=== PATIENT | male | born 1995 | race Caucasian/White ===

== ENCOUNTER 2017-01-07 00:46 | Emergency (ER) | payer MEDICAID ==
[2017-01-07 01:45] VITALS: BP 142/105
== END 2017-01-07 01:45 | disposition left against medical advice (07) ==
LOC: ED 00:46
DX: Z53.21 Procedure and treatment not carried out due to patient leaving prior to being seen by health care provider (principal)

== ENCOUNTER 2017-01-28 09:22 | Emergency (ER) | payer MEDICAID ==
[2017-01-28 09:30] VITALS: BP 137/107
== END 2017-01-28 09:51 | disposition left against medical advice (07) ==
LOC: ED 09:22
DX: Z53.21 Procedure and treatment not carried out due to patient leaving prior to being seen by health care provider (principal)

== ENCOUNTER 2017-01-29 21:52 | Emergency (ER) | payer MEDICAID ==
[2017-01-30 00:43] VITALS: BP 142/87
== END 2017-01-30 00:43 | disposition home or self-care (01) ==
LOC: ED 21:52
DX: T52.0X1A Toxic effect of petroleum products, accidental (unintentional), initial encounter (principal); H10.212 Acute toxic conjunctivitis, left eye; Y92.89 Other specified places as the place of occurrence of the external cause
CPT/HCPCS: J7030; J7050; V2632

== ENCOUNTER 2017-03-20 00:13 | Emergency (ER) | payer OTHER | END 2017-03-20 01:42 | disposition other institution (70) | LOC: ED 00:13 | DX: Z02.89 Encounter for other administrative examinations (principal) ==

== ENCOUNTER 2017-03-20 00:13 | Emergency (ER) | payer MEDICAID ==
[2017-03-20 01:41] VITALS: BP 148/111
== END 2017-03-20 01:42 | disposition other institution (70) ==
LOC: ED 00:13
DX: S02.2XXA Fracture of nasal bones, initial encounter for closed fracture (principal); X58.XXXA Exposure to other specified factors, initial encounter; Y93.89 Activity, other specified; Y99.8 Other external cause status; Y92.89 Other specified places as the place of occurrence of the external cause

== ENCOUNTER 2017-04-25 22:22 | Emergency (ER) | payer SELFPAY ==
[2017-04-26 00:39] LABS: CALCIUM 8.6 mg/dL (8.5-10.1); CARBON DIOXIDE 27.3 mmol/L (21-32); CHLORIDE SERUM 110 mmol/L (98-107); CREATININE SERUM 1.3 mg/dL (0.7-1.3); GFR1 > 60 mL/min; GLUCOSE SERUM 117 mg/dL (74-106); POTASSIUM SERUM 3.7 mmol/L (3.5-5.1); SODIUM SERUM 146 mmol/L (136-145)
[2017-04-26 00:51] LABS: ALKALINE PHOSPHATASE 75 U/L (46-116); ALT/SGPT 23 U/L (16-63); AST/SGOT 17 U/L (15-37); BASOPHIL % 0.9 % (0-2); BILIRUBIN TOTAL 0.3 mg/dL (0.20-1.00); PLATELET COUNT 305 x10^3mcL (130-400); RED CELL DISTRIBUTION WIDTH 11.5 % (11.5-14.5); T4(THYROXINE) 7.2 ug/dL (4.7-13.3); TOTAL PROTEIN, SERUM 7.5 g/dL (6.4-8.2)
[2017-04-26 01:21] VITALS: BP 112/75
== END 2017-04-26 01:21 | disposition home or self-care (01) ==
LOC: ED 22:22
PROVIDERS: Emergency Medicine
DX: Z02.89 Encounter for other administrative examinations (principal); R00.0 Tachycardia, unspecified
CPT/HCPCS: 83880; G0480; J2060; J7030; Q0092

== ENCOUNTER 2017-05-05 16:48 | Emergency (ER) | payer MEDICAID ==
[~2017-05-05] VITALS: Ht 172.7 cm; Wt 81.6 kg
[2017-05-05 17:32] LABS: BASOPHIL % 0.4 % (0-2); PLATELET COUNT 330 x10^3mcL (130-400); RED CELL DISTRIBUTION WIDTH 12.4 % (11.5-14.5)
[2017-05-05 17:34] LABS: CALCIUM 9.7 mg/dL (8.5-10.1); CARBON DIOXIDE 28.3 mmol/L (21-32); CHLORIDE SERUM 105 mmol/L (98-107); CREATININE SERUM 1.4 mg/dL (0.7-1.3); GFR1 > 60 mL/min; GLUCOSE SERUM 128 mg/dL (74-106); POTASSIUM SERUM 3.2 mmol/L (3.5-5.1); SODIUM SERUM 146 mmol/L (136-145)
[2017-05-05 17:38] LABS: ALBUMIN 4.6 g/dL (3.4-5.0); ALKALINE PHOSPHATASE 82 U/L (46-116); ALT/SGPT 22 U/L (16-63); AST/SGOT 18 U/L (15-37); BILIRUBIN TOTAL 0.5 mg/dL (0.20-1.00)
[2017-05-05 17:39] LABS: TOTAL PROTEIN, SERUM 8.4 g/dL (6.4-8.2)
[2017-05-05 18:20] LABS: UA SPECIFIC GRAVITY >=1.030 (1.005-1.035); microscopic required? YES; urine erythrocyte NEGATIVE (NEGATIVE)
[2017-05-05 18:37] LABS: AMPHETAMINE QUAL UR POSITIVE (NEG <=1000)
[2017-05-05 23:43] VITALS: BP 105/59
== END 2017-05-05 23:43 | disposition home or self-care (01) ==
LOC: ED 16:48
PROVIDERS: Emergency Medicine
DX: T43.621A Poisoning by amphetamines, accidental (unintentional), initial encounter (principal); G92 Toxic encephalopathy; E87.6 Hypokalemia; E86.0 Dehydration; Y92.89 Other specified places as the place of occurrence of the external cause
CPT/HCPCS: G0480; J0515; J1630; J2060; J2250; J3480; J7030

== ENCOUNTER 2017-06-16 13:52 | Emergency (ER) | payer MEDICAID ==
[2017-06-16 14:02] VITALS: BP 167/121
== END 2017-06-16 15:04 | disposition home or self-care (01) ==
LOC: ED 13:52
DX: T18.0XXA Foreign body in mouth, initial encounter (principal); X58.XXXA Exposure to other specified factors, initial encounter; Y93.89 Activity, other specified; Y99.8 Other external cause status; Y92.89 Other specified places as the place of occurrence of the external cause
CPT/HCPCS: J2060

== ENCOUNTER 2017-06-16 19:13 | Emergency (ER) | payer MEDICAID ==
[2017-06-16 20:52] VITALS: BP 124/81
== END 2017-06-16 20:52 | disposition home or self-care (01) ==
LOC: ED 19:13
DX: F45.8 Other somatoform disorders (principal)
CPT/HCPCS: J1885

== ENCOUNTER 2017-07-07 14:40 | Emergency (ER) | payer SELFPAY ==
[~2017-07-07] VITALS: Ht 175.3 cm; Wt 95.2 kg
[2017-07-07 15:51] LABS: BASOPHIL % 0.2 % (0-2); PLATELET COUNT 310 x10^3mcL (130-400); RED CELL DISTRIBUTION WIDTH 12.1 % (11.5-14.5)
[2017-07-07 16:03] LABS: ALBUMIN 3.6 g/dL (3.4-5.0); ALKALINE PHOSPHATASE 62 U/L (46-116); ALT/SGPT 24 U/L (16-63); AST/SGOT 15 U/L (15-37); BILIRUBIN TOTAL 0.41 mg/dL (0.20-1.00); CALCIUM 8.7 mg/dL (8.5-10.1); CARBON DIOXIDE 27.6 mmol/L (21-32); CHLORIDE SERUM 107 mmol/L (98-107); CREATININE SERUM 1.1 mg/dL (0.7-1.3); GFR1 > 60 mL/min; GLUCOSE SERUM 104 mg/dL (74-106); SODIUM SERUM 142 mmol/L (136-145); TOTAL PROTEIN, SERUM 7.1 g/dL (6.4-8.2)
[2017-07-07 17:44] LABS: UA SPECIFIC GRAVITY >=1.030 (1.005-1.035); microscopic required? YES; urine erythrocyte NEGATIVE (NEGATIVE)
[2017-07-07 17:54] LABS: AMPHETAMINE QUAL UR POSITIVE (NEG <=1000)
[2017-07-07 21:01] VITALS: BP 117/51
== END 2017-07-07 20:30 | disposition home or self-care (01) ==
LOC: ED 14:40
PROVIDERS: Emergency Medicine
DX: F15.921 Other stimulant use, unspecified with intoxication delirium (principal); G92 Toxic encephalopathy
CPT/HCPCS: G0480; J0515; J1630; J2060; J7030; Q0092

== ENCOUNTER 2017-12-08 21:02 | Emergency (ER) | payer SELFPAY ==
[~2017-12-08] VITALS: Ht 175.3 cm; Wt 96.6 kg
[2017-12-08 21:45] VITALS: BP 148/76; Ht 175.3 cm; Wt 96.6 kg
== END 2017-12-09 01:47 | disposition left against medical advice (07) ==
LOC: ED 21:02
DX: Z53.21 Procedure and treatment not carried out due to patient leaving prior to being seen by health care provider (principal)

== ENCOUNTER 2017-12-31 20:15 | Inpatient (IN) | payer SELFPAY ==
[~2017-12-31] VITALS: Ht 175.3 cm; Wt 96.2 kg
[2017-12-31 20:58] LABS: BASOPHIL % 0.4 % (0-2); PLATELET COUNT 326 x10^3mcL (130-400); RED CELL DISTRIBUTION WIDTH 13.3 % (11.5-14.5)
[2017-12-31 21:10] LABS: UA SPECIFIC GRAVITY 1.025 (1.005-1.035); microscopic required? YES; urine erythrocyte TRACE (NEGATIVE)
[2017-12-31 21:18] LABS: AMPHETAMINE QUAL UR POSITIVE (NEG <=1000)
[2017-12-31 21:19] LABS: CALCIUM 9.6 mg/dL (8.5-10.1); CARBON DIOXIDE 26.4 mmol/L (21-32); CHLORIDE SERUM 101 mmol/L (98-107); CREATININE SERUM 1.2 mg/dL (0.7-1.3); GFR1 > 60 mL/min; GLUCOSE SERUM 129 mg/dL (74-106); POTASSIUM SERUM 3.2 mmol/L (3.5-5.1); SODIUM SERUM 135 mmol/L (136-145)
[2017-12-31 21:23] LABS: ALBUMIN 4.7 g/dL (3.4-5.0); ALKALINE PHOSPHATASE 64 U/L (46-116); ALT/SGPT 25 U/L (16-63); AST/SGOT 19 U/L (15-37); BILIRUBIN TOTAL 0.67 mg/dL (0.20-1.00); TOTAL PROTEIN, SERUM 8.1 g/dL (6.4-8.2)
[2018-01-01 13:01] LABS: PHOSPHOROUS 4.5 mg/dL (2.5-4.9)
[2018-01-01 13:03] LABS: CHOLESTEROL/HDL RATIO 2.2
[2018-01-01 13:09] LABS: FREE T4 1.33 ng/dL (0.76-1.46); FREE THYROXINE INDEX 3.2 ug/dL (1.4-4.5); T3 TOTAL 1.24 ng/mL; T4(THYROXINE) 9.1 ug/dL (4.7-13.3)
[2018-01-01 13:12] VITALS: BP 118/63
[2018-01-01] MEDS ORDERED: DILANTIN100 MG PO (13:28)
[2018-01-01] MEDS ORDERED: LEVOTHYROXIN0.025 M2 PO (13:28)
[2018-01-01 18:25] VITALS: BP 100/58
[2018-01-02 01:07] VITALS: BP 110/64
[2018-01-02 07:22] VITALS: BP 102/52
[2018-01-02 10:18] VITALS: BP 97/48
[2018-01-02 14:31] LABS: BASOPHIL % 0.2 % (0-2); PLATELET COUNT 271 x10^3mcL (130-400)
[2018-01-02 14:38] VITALS: BP 110/53
[2018-01-02 14:44] LABS: CALCIUM 8.5 mg/dL (8.5-10.1); CARBON DIOXIDE 30.2 mmol/L (21-32); CHLORIDE SERUM 105 mmol/L (98-107); GFR1 > 60 mL/min; GLUCOSE SERUM 142 mg/dL (74-106); POTASSIUM SERUM 3.7 mmol/L (3.5-5.1); SODIUM SERUM 136 mmol/L (136-145)
[2018-01-02 18:56] VITALS: BP 111/54
[2018-01-02 22:30] VITALS: BP 121/65
[2018-01-03 06:18] VITALS: BP 111/57
[2018-01-03 09:46] VITALS: BP 120/72
[2018-01-03 14:23] VITALS: Ht 175.3 cm; Wt 96.2 kg
[2018-01-03 17:23] VITALS: BP 110/50
[2018-01-03 22:17] VITALS: BP 118/62
[2018-01-04 05:07] VITALS: BP 105/49
[2018-01-04 09:58] VITALS: BP 114/72
[2018-01-04 17:54] VITALS: BP 127/67
[2018-01-04 20:30] VITALS: BP 135/71
[2018-01-05 05:49] VITALS: BP 101/58
[2018-01-05 06:18] LABS: BASOPHIL % 0.4 % (0-2); PLATELET COUNT 280 x10^3mcL (130-400); RED CELL DISTRIBUTION WIDTH 13.4 % (11.5-14.5)
[2018-01-05 06:37] LABS: CALCIUM 8.9 mg/dL (8.5-10.1); CHLORIDE SERUM 103 mmol/L (98-107); CREATININE SERUM 0.8 mg/dL (0.7-1.3); GFR1 > 60 mL/min; GLUCOSE SERUM 85 mg/dL (74-106); POTASSIUM SERUM 4.1 mmol/L (3.5-5.1); SODIUM SERUM 139 mmol/L (136-145)
[2018-01-05 08:25] VITALS: BP 121/71
[2018-01-05 12:45] VITALS: BP 111/60
[2018-01-05 17:48] VITALS: BP 127/78
[2018-01-05 21:52] VITALS: BP 105/51
[2018-01-06 05:55] VITALS: BP 115/66
[2018-01-06 06:19] LABS: BASOPHIL % 0.3 % (0-2); PLATELET COUNT 280 x10^3mcL (130-400); RED CELL DISTRIBUTION WIDTH 13.1 % (11.5-14.5)
[2018-01-06 06:42] LABS: CALCIUM 8.2 mg/dL (8.5-10.1); CARBON DIOXIDE 28.9 mmol/L (21-32); CHLORIDE SERUM 100 mmol/L (98-107); CREATININE SERUM 0.8 mg/dL (0.7-1.3); GFR1 > 60 mL/min; GLUCOSE SERUM 82 mg/dL (74-106); MAGNESIUM 1.9 mg/dL (1.8-2.4); PHOSPHOROUS 3.8 mg/dL (2.5-4.9); SODIUM SERUM 140 mmol/L (136-145)
[2018-01-06 08:19] VITALS: BP 120/62
[2018-01-06 17:18] VITALS: BP 119/66
[2018-01-06 22:37] VITALS: BP 112/56
[2018-01-07 05:34] VITALS: BP 115/60
[2018-01-07 06:12] LABS: BASOPHIL % 0.3 % (0-2); PLATELET COUNT 149 x10^3mcL (130-400); RED CELL DISTRIBUTION WIDTH 13.2 % (11.5-14.5)
[2018-01-07 06:28] LABS: CARBON DIOXIDE 31.1 mmol/L (21-32); CHLORIDE SERUM 103 mmol/L (98-107); CREATININE SERUM 0.8 mg/dL (0.7-1.3); GFR1 > 60 mL/min; GLUCOSE SERUM 86 mg/dL (74-106); POTASSIUM SERUM 4.3 mmol/L (3.5-5.1); SODIUM SERUM 137 mmol/L (136-145)
[2018-01-07 09:55] VITALS: BP 110/65
[2018-01-07 18:05] VITALS: BP 126/70
[2018-01-07 20:31] VITALS: BP 124/76
[2018-01-07 22:48] VITALS: BP 103/67
[2018-01-08 06:09] VITALS: BP 106/61
[2018-01-08 06:21] LABS: BASOPHIL % 0.4 % (0-2); PLATELET COUNT 298 x10^3mcL (130-400); RED CELL DISTRIBUTION WIDTH 13.1 % (11.5-14.5)
[2018-01-08 06:44] LABS: CALCIUM 9.1 mg/dL (8.5-10.1); CARBON DIOXIDE 30.8 mmol/L (21-32); CHLORIDE SERUM 103 mmol/L (98-107); CREATININE SERUM 0.8 mg/dL (0.7-1.3); GFR1 > 60 mL/min; GLUCOSE SERUM 86 mg/dL (74-106); POTASSIUM SERUM 4.1 mmol/L (3.5-5.1); SODIUM SERUM 140 mmol/L (136-145)
[2018-01-08 06:45] VITALS: BP 112/60
[2018-01-08 09:39] VITALS: BP 102/62
[2018-01-08] MEDS ORDERED: SEROQUEL100 MG PO (16:34)
[2018-01-08 17:36] VITALS: BP 102/62
== END 2018-01-08 17:55 | disposition home or self-care (01) | DRG 917 ==
LOC: ED 20:15 → MU 01-01 11:49 → DU 01-01 11:49 → MU 01-02 08:06
PROVIDERS: Emergency Medicine; Family Medicine; Student in an Organized Health Care Education/Training Program
DX: T43.621A Poisoning by amphetamines, accidental (unintentional), initial encounter (principal); G92 Toxic encephalopathy; N17.0 Acute kidney failure with tubular necrosis; E87.1 Hypo-osmolality and hyponatremia; F23 Brief psychotic disorder; E87.6 Hypokalemia; E86.0 Dehydration; R80.8 Other proteinuria; F17.200 Nicotine dependence, unspecified, uncomplicated; Z68.31 Body mass index [BMI] 31.0-31.9, adult; Y92.89 Other specified places as the place of occurrence of the external cause
CPT/HCPCS: 83880; 84439; G0480; J1630; J2060; J7030; Q0092

== ENCOUNTER 2018-09-24 22:30 | Emergency (ER) | payer OTHER ==
[~2018-09-24 22:30] MED LIST: DILANTIN100 MG PO; LEVOTHYROXIN0.025 M2 PO; SEROQUEL100 MG PO
== END 2018-09-24 23:20 | disposition left against medical advice (07) ==
LOC: ED 22:30
DX: Z53.21 Procedure and treatment not carried out due to patient leaving prior to being seen by health care provider (principal)

== ENCOUNTER 2020-02-24 22:44 | Emergency (ER) | payer OTHER ==
[~2020-02-24] VITALS: Ht 170.2 cm; Wt 86.2 kg
[2020-02-24 22:46] VITALS: Ht 170.2 cm; Wt 86.2 kg
[2020-02-25] VITALS: BP 139/89
== END 2020-02-25 | disposition other institution (70) ==
LOC: ED 22:44
DX: Z02.89 Encounter for other administrative examinations (principal)